=== PATIENT | female | born 1955 | race Caucasian/White ===

== ENCOUNTER 2016-05-29 19:13 | Emergency (ER) | payer OTHER ==
--- NOTE | 2016-05-29 21:23 | ED CLINICAL REPORT ---
Clinical Report - Physicians/Mid Levels [facility] [address] [place] [address] 05/29/2016 19:14 [id number] Time Seen: 19:25; upon arrival, initial patient contact, initial documentation, patient care assumed. Arrived- By private vehicle. Historian- patient. HISTORY OF PRESENT ILLNESS Chief Complaint: Injury to right ankle. The injury happened just prior to arrival. The patient sustained a twisting injury. Occurred at home. Patient is experiencing severe pain. Patient denies injury to the head or neck. No other injury. REVIEW OF SYSTEMS The patient complains of pain on weight bearing. She has had swelling. No tingling, weakness, numbness or skin laceration. All systems otherwise negative, except as recorded above. PAST HISTORY See nurses notes. ( PROBLEMS: Muscle Strain, Lower Extremity. Sciatica. Chronic Back Pain. Arthritis. --19:31 Emely Holguin R.N. ADDITIONAL SURGERIES: Hand surgery. --19:31 Emely Holguin R.N.). SOCIAL HISTORY Heavy tobacco smoker. No alcohol use or drug use. No recent travel. Is a local resident. FAMILY HISTORY No significant family medical history. ADDITIONAL NOTES The nursing notes have been reviewed with agreement regarding the chief complaint, HPI, ROS, PMH and patient medications and allergies. PHYSICAL EXAM Vital Signs: 05/29/2016 19:29 BP: 170/107. HR: 87. RR: 24. O2 saturation: 99%. Temp: 98.5 F. Pain level now: 10/10. Have been reviewed as abnormal and appear to be correct. Hypertensive. Heart rate normal. Respiratory rate normal. Temperature normal. Oxygen saturation normal. Appearance: Alert. Oriented X3. No acute distress. Head: Head atraumatic. Eyes: Pupils equal, round and reactive to light. Eyes normal inspection. Respiratory: No respiratory distress. Skin: Skin intact. Skin warm and dry. Normal skin color. Normal skin turgor. Extremities: Right ankle: moderate tenderness and mild swelling localized to the lateral malleolus. Limited ROM secondary to pain (diminished plantar flexion, dorsiflexion, inversion and eversion). Neurovascular intact distally. No ligamentous laxity present. No joint effusion. No erythema, laceration, abrasion, ecchymosis or puncture wound. No foreign body or deformity. Lower extremity exam otherwise negative. Extremities otherwise negative. Gait: Abnormal gait. Gait not tested due to pain. Neuro, Vascular and Tendons: Vascular status intact. Sensation intact. Motor intact. Tendon function intact. Neuro: Oriented X 3. No motor deficit. No sensory deficit. Note: isolated injury to ankle. LABS, X-RAYS, AND EKG X-Rays: Right ankle. Rt Ankle X-ray: Right ankle fracture. Fracture of the lateral malleolus. (and reviewed by dr schneider IMPRESSION: 1. Distal right fibula oblique fracture Electronically Final signed by:Aki Capone MD 05/29/2016 9:47:15 PM). The X-rays were independently viewed by me. PROGRESS AND PROCEDURES Patient counseled in person regarding the patient's stable condition, test results and diagnosis. 2116. Differential Diagnosis: Other possible considerations: fx, sprain, dislocation. Above considerations are based on history, physical exam and X-Ray data. Differential diagnosis was discussed with patient. Disposition: Discharged home in good and improved condition (21:23). Condition: good and stable. CLINICAL IMPRESSION Closed nondisplaced spiral fracture of the lateral malleolus of the right fibula. No angulated fracture of the fibula. INSTRUCTIONS Apply ice for 20 minutes four times a day for two days until better. Don't apply ice directly to skin. Use crutches until released. Wear fiberglass splint until released. Elevate affected areas above chest level for two days until better. (htn). Warnings: GENERAL WARNINGS: Return or contact your physician immediately if your condition worsens or changes unexpectedly, if not improving as expected, or if other problems arise. Specifically return if problem worsens. Prescription Medications: Zofran 4 mg: Take 1 orally every six hours as needed for nausea/vomiting. Dispense ten (10). No refills. Substitution is permissible. [place] 5 mg / 325 mg tablets: take 1 orally every 6 hours as needed for pain. Dispense thirty (30). No refill. Motrin 800 mg tablets: take 1 tablet orally every 8 hours as needed for pain. Dispense thirty (30). No refills. Substitution is permissible. Understanding of the discharge instructions verbalized by patient. Follow-up with: Fred Hanks MD, Orthopedic Surgeon, , [address] [address] Follow up in about three days even if well. Call for an appointment. Summary of care provided to patient. (Electronically signed by Arlene Hoskins A.R.N.P. 05/29/2016 21:56)
--- NOTE | 2016-05-29 21:23 | ED CLINICAL REPORT ---
Clinical Report - Physicians/Mid Levels [facility] [address] [place] [address] 05/29/2016 19:14 [id number] Time Seen: 19:25; upon arrival, initial patient contact, initial documentation, patient care assumed. Arrived- By private vehicle. Historian- patient. HISTORY OF PRESENT ILLNESS Chief Complaint: Injury to right ankle. The injury happened just prior to arrival. The patient sustained a twisting injury. Occurred at home. Patient is experiencing severe pain. Patient denies injury to the head or neck. No other injury. REVIEW OF SYSTEMS The patient complains of pain on weight bearing. She has had swelling. No tingling, weakness, numbness or skin laceration. All systems otherwise negative, except as recorded above. PAST HISTORY See nurses notes. ( PROBLEMS: Muscle Strain, Lower Extremity. Sciatica. Chronic Back Pain. Arthritis. --19:31 Emely Holguin R.N. ADDITIONAL SURGERIES: Hand surgery. --19:31 Emely Holguin R.N.). SOCIAL HISTORY Heavy tobacco smoker. No alcohol use or drug use. No recent travel. Is a local resident. FAMILY HISTORY No significant family medical history. ADDITIONAL NOTES The nursing notes have been reviewed with agreement regarding the chief complaint, HPI, ROS, PMH and patient medications and allergies. PHYSICAL EXAM Vital Signs: 05/29/2016 19:29 BP: 170/107. HR: 87. RR: 24. O2 saturation: 99%. Temp: 98.5 F. Pain level now: 10/10. Have been reviewed as abnormal and appear to be correct. Hypertensive. Heart rate normal. Respiratory rate normal. Temperature normal. Oxygen saturation normal. Appearance: Alert. Oriented X3. No acute distress. Head: Head atraumatic. Eyes: Pupils equal, round and reactive to light. Eyes normal inspection. Respiratory: No respiratory distress. Skin: Skin intact. Skin warm and dry. Normal skin color. Normal skin turgor. Extremities: Right ankle: moderate tenderness and mild swelling localized to the lateral malleolus. Limited ROM secondary to pain (diminished plantar flexion, dorsiflexion, inversion and eversion). Neurovascular intact distally. No ligamentous laxity present. No joint effusion. No erythema, laceration, abrasion, ecchymosis or puncture wound. No foreign body or deformity. Lower extremity exam otherwise negative. Extremities otherwise negative. Gait: Abnormal gait. Gait not tested due to pain. Neuro, Vascular and Tendons: Vascular status intact. Sensation intact. Motor intact. Tendon function intact. Neuro: Oriented X 3. No motor deficit. No sensory deficit. Note: isolated injury to ankle. LABS, X-RAYS, AND EKG X-Rays: Right ankle. Rt Ankle X-ray: Right ankle fracture. Fracture of the lateral malleolus. (and reviewed by dr schneider IMPRESSION: 1. Distal right fibula oblique fracture Electronically Final signed by:Aki Capone MD 05/29/2016 9:47:15 PM). The X-rays were independently viewed by me. PROGRESS AND PROCEDURES Patient counseled in person regarding the patient's stable condition, test results and diagnosis. 2116. Differential Diagnosis: Other possible considerations: fx, sprain, dislocation. Above considerations are based on history, physical exam and X-Ray data. Differential diagnosis was discussed with patient. Disposition: Discharged home in good and improved condition (21:23). Condition: good and stable. CLINICAL IMPRESSION Closed nondisplaced spiral fracture of the lateral malleolus of the right fibula. No angulated fracture of the fibula. INSTRUCTIONS Apply ice for 20 minutes four times a day for two days until better. Don't apply ice directly to skin. Use crutches until released. Wear fiberglass splint until released. Elevate affected areas above chest level for two days until better. (htn). Warnings: GENERAL WARNINGS: Return or contact your physician immediately if your condition worsens or changes unexpectedly, if not improving as expected, or if other problems arise. Specifically return if problem worsens. Prescription Medications: Zofran 4 mg: Take 1 orally every six hours as needed for nausea/vomiting. Dispense ten (10). No refills. Substitution is permissible. [place] 5 mg / 325 mg tablets: take 1 orally every 6 hours as needed for pain. Dispense thirty (30). No refill. Motrin 800 mg tablets: take 1 tablet orally every 8 hours as needed for pain. Dispense thirty (30). No refills. Substitution is permissible. Understanding of the discharge instructions verbalized by patient. Follow-up with: Fred Hanks MD, Orthopedic Surgeon, , [address] [address] Follow up in about three days even if well. Call for an appointment. Summary of care provided to patient. (Electronically signed by Arlene Hoskins A.R.N.P. 05/29/2016 21:56)
--- NOTE | 2016-05-29 21:23 | ED ORDER SUMMARY ---
..... Patient: MIHAI NATION [facility] VisitID: [id number] [address] [place] [address] 60y, F Registration Date/Time: 05/29/2016 ORDER SHEET Weight: 63.5 kg (stated) Allergies: No Known Drug Allergy GENERAL ORDERS: Ankle 3 or 4V Right Urgent (19:33 05/29/2016 EInderbitzen R.N. verbal order read back to HBivens A.R.N.P.) (19:43 Crystal) Splint (LE) (Right) (Short Leg Posterior) (19:50 05/29/2016 HBivens A.R.N.P.) (Ack 19:56 [employer] ER Organ Grinder) (21:09 [employer] ER Organ Grinder) Crutches (19:50 05/29/2016 HBivens A.R.N.P.) (Ack 19:56 [employer] ER Organ Grinder) (22:02 EInderbitzen R.N.) MEDICATION ORDERS: Toradol IM 60 mg (NOW) (19:49 05/29/2016 HBivens A.R.N.P.) (20:15 EInderbitzen R.N.) Hydrocodone-APAP PO 5/325 mg (NOW, HIGH ALERT MEDICATION) (19:49 05/29/2016 HBivens A.R.N.P.) (20:16 EInderbitzen R.N.) IV FLUIDS: ORDER SHEET NOTES: [Electronically signed by Arlene Hoskins A.R.N.P. (21:56 05/29/2016)] [Electronically signed by Emely Holguin R.N. (22:03 05/29/2016)] [Electronically locked/signed by Emely Holguin R.N. (22:03 05/29/2016)]
--- NOTE | 2016-05-29 21:23 | ED ORDER SUMMARY ---
..... Patient: MIHAI NATION OrderSheet [facility] VisitID: [id number] [address] [place] [address] 60y, F Registration Date/Time: 05/29/2016 ORDER SHEET Weight: 63.5 kg (stated) Allergies: No Known Drug Allergy GENERAL ORDERS: Ankle 3 or 4V Right Urgent (19:33 05/29/2016 EInderbitzen R.N. verbal order read back to HBivens A.R.N.P.) (19:43 Crystal) Splint (LE) (Right) (Short Leg Posterior) (19:50 05/29/2016 HBivens A.R.N.P.) (Ack 19:56 [employer] Radio Operator Ground) (21:09 [employer] ER Radio Operator Ground) Crutches (19:50 05/29/2016 HBivens A.R.N.P.) (Ack 19:56 [employer] Radio Operator Ground) (22:02 EInderbitzen R.N.) MEDICATION ORDERS: Toradol IM 60 mg (NOW) (19:49 05/29/2016 HBivens A.R.N.P.) (20:15 EInderbitzen R.N.) Hydrocodone-APAP PO 5/325 mg (NOW, HIGH ALERT MEDICATION) (19:49 05/29/2016 HBivens A.R.N.P.) (20:16 EInderbitzen R.N.) IV FLUIDS: ORDER SHEET NOTES: [Electronically signed by Arlene Hoskins A.R.N.P. (21:56 05/29/2016)] [Electronically signed by Emely Holguin R.N. (22:03 05/29/2016)] [Electronically locked/signed by Emely Holguin R.N. (22:03 05/29/2016)]
--- NOTE | 2016-05-29 21:23 | ED NURSING NOTES ---
Clinical Report - Nurses [facility] [address] [place] [address] 05/29/2016 19:14 [id number] Triage time 19:29 May 29 2016. Acuity: LEVEL 3. Chief Complaint: INJURY TO RIGHT ANKLE. 19:32 05/29/16. SEPSIS SCREEN: Sepsis Screen: negative. Negative (no infection suspected/documented). SRINI COMA SCORE: Srini Coma Scale: 15- eyes open spontaneously (4); best verbal response- oriented x 4 (5); best motor response- obeys commands (6). --19:32 Emely Holguin R.N. 19:29 05/29/16. BP: 170/107. HR: 87. RR: 24. O2 saturation: 99%. Temp: 98.5 F. Pain level now: 02/01. --19:32 Emely Holguin R.N. Weight: 63.5 kg stated. Height/Length: 56 inches Per Patient. BMI: 31.4. --19:29 Emely Holguin R.N. Medications None. --19:30 Emely Holguin R.N. Allergies No Known Drug Allergy. --19:30 Emely Holguin R.N. Medication/allergy information source: the patient. --19:32 Emely Holguin R.N. History Arrived by private vehicle. Historian: patient. Accompanied by friend. This occurred just prior to arrival. Mechanism of injury: sustained a twisting injury and fell. ( slipped on wet wood surface, landed with ankle underneath her.). Treatment SUPERINTENDENT MENAGERIE: None. PAST MEDICAL HX: The patient is post-menopausal. Denies current . SOCIAL HX: Heavy tobacco smoker- 1 pack per day. No alcohol use or drug use. No infectious disease exposure. ABUSE ASSESSMENT: No report of abuse. SELF HARM ASSESSMENT: A self harm assessment was performed. The patient answered "no" to the question "Have you recently felt down, depressed, or hopeless?", "Have you noticed less interest or pleasure in doing things?", "Do you have thoughts of harming or killing yourself?", "Are you here because you tried to hurt yourself?", "Have you ever tried to hurt yourself before today?", "Have you recently had thoughts about harming or killing others?" and "Do you have any dangerous items in your possession?". FALL RISK ASSESSMENT: Fall risk assessment completed. No fall risk identified. NUTRITIONAL RISK ASSESSMENT: The nutritional risk assessment revealed no deficiencies. FUNCTIONAL ASSESSMENT: Functional assessment: no impairments noted. LEARNING NEEDS ASSESSMENT: The learning needs assessment revealed no barriers. SKIN INTEGRITY ASSESSMENT: Skin integrity risk assessment completed. No skin integrity risk identified. --19:32 Emely Holguin R.N. PROBLEMS: Muscle Strain, Lower Extremity. Sciatica. Chronic Back Pain. Arthritis. --19:31 Emely Holguin R.N. ADDITIONAL SURGERIES: Hand surgery. --19:31 Emely Holguin R.N. Interventions ID band on patient. --19:32 Emely Holguin R.N. PHYSICAL ASSESSMENT 19:30 05/29/16. To room via stretcher. GENERAL / NEURO / PSYCH: Oriented X 4. Appears in pain. EXTREMITIES: Capillary refill is less than 2 seconds in the extremities. Extremity pulses are within normal limits. She was unable to bear weight. Neuro-vascular status intact to the extremity. Right ankle: tenderness, swelling and deformity. Limited ROM secondary to pain (diminished plantar flexion, dorsiflexion, inversion and eversion). SKIN: Skin intact. Skin is warm and dry. --19:43 Emely Holguin R.N. NURSING PROGRESS NOTES 19:29 05/29/16. The initial plan of care for this patient includes an assessment with efforts to address the presence of pain; impairment of the musculoskeletal system. This plan of care was discussed with the patient. Cold pack applied to the right ankle. Right leg and right ankle elevated. Patient gowned. Reassurance given. Patient identifiers checked. Call light placed in reach. Side rails up x 1. Bed placed in lowest position. Brakes of bed on. --19:41 Emely Holguin R.N. 19:35 05/29/16. Patient transported to radiology by stretcher. --19:41 Emely Holguin R.N. 20:10 05/29/2016 Toradol (Ketorolac Tromethamine) IM 60 mg given. Given in the right gluteus paxton. Allergies verified and confirmed 5 rights. --20:16 Emely Holguin R.N. 20:10 05/29/2016 Hydrocodone-APAP (Hydrocodone-Acetaminophen) PO 5/325 mg Tablets 1 tab given. Allergies verified, confirmed 5 rights and sedative warning given to the patient. --20:16 Emely Holguin R.N. Short leg posterior fiberglass lower extremity splint applied to right leg and ankle by tech. Distal pulses intact, sensation intact and motor within normal limits. --21:10 Billy Vences, ER Change Person Patient fit with new crutches ([employer]). Crutch training performed by physical therapist; the patient demonstrated proper use. --21:58 Billy Vences, ER Change Person. DISPOSITION / DISCHARGE 21:20 05/29/2016 Hydrocodone-APAP PO Response: no adverse reaction pain is improving. --22:00 Emely Holguin R.N. 21:20 05/29/2016 Toradol IM Response: no adverse reaction pain is improving. --22:00 Emely Holguin R.N. 21:35 05/29/16. Condition at departure: improved and stable. The goals identified in the patient's plan of care were met. No learning barriers present. Discharge instructions provided and reviewed with the patient. Reviewed medication(s) side effects, precautions, dosing and course information. Prescription(s) given to the patient. Reviewed crutch walking and splint care instructions. Reviewed referral to an orthopedic surgeon for followup. Summary of care provided to patient. Patient verbalized understanding. Written instructions provided in Romanian. The patient was discharged home and accompanied by telecommunication systems designer. She left the Emergency Department in a wheelchair on crutches and via private vehicle. Creative Writing English Professor driving. --22:02 Emely Holguin R.N. 22:01 05/29/16. BP: 150/97. HR: 87. RR: 18. O2 saturation: 95%. Temp: 98.9 F. Pain level now: 09/01. 19:29 05/29/16. BP: 170/107. HR: 87. RR: 24. O2 saturation: 99%. Temp: 98.5 F. Pain level now: 02/01. --22:02 Emely Holguin R.N. Departure time: 21:38 May 29 2016. --22:02 Emely Holguin R.N. Locked/Released at 05/29/2016 22:03 by Emely Holguin R.N.
--- NOTE | 2016-05-29 21:23 | ED NURSING NOTES ---
Clinical Report - Nurses [facility] [address] [place] [address] 05/29/2016 19:14 [id number] TRI[facility] Triage time 19:29 May 29 2016. Acuity: LEVEL 3. Chief Complaint: INJURY TO RIGHT ANKLE. 19:32 05/29/16. SEPSIS SCREEN: Sepsis Screen: negative. Negative (no infection suspected/documented). SRINI COMA SCORE: Srini Coma Scale: 15- eyes open spontaneously (4); best verbal response- oriented x 4 (5); best motor response- obeys commands (6). --19:32 Emely Holguin R.N. 19:29 05/29/16. BP: 170/107. HR: 87. RR: 24. O2 saturation: 99%. Temp: 98.5 F. Pain level now: 02/01. --19:32 Emely Holguin R.N. Weight: 63.5 kg stated. Height/Length: 56 inches Per Patient. BMI: 31.4. --19:29 Emely Holguin R.N. Medications None. --19:30 Emely Holguin R.N. Allergies No Known Drug Allergy. --19:30 Emely Holguin R.N. Medication/allergy information source: the patient. --19:32 Emely Holguin R.N. History Arrived by private vehicle. Historian: patient. Accompanied by friend. This occurred just prior to arrival. Mechanism of injury: sustained a twisting injury and fell. ( slipped on wet wood surface, landed with ankle underneath her.). Treatment SOCIAL MEDIA MARKETING MANAGER: None. PAST MEDICAL HX: The patient is post-menopausal. Denies current . SOCIAL HX: Heavy tobacco smoker- 1 pack per day. No alcohol use or drug use. No infectious disease exposure. ABUSE ASSESSMENT: No report of abuse. SELF HARM ASSESSMENT: A self harm assessment was performed. The patient answered "no" to the question "Have you recently felt down, depressed, or hopeless?", "Have you noticed less interest or pleasure in doing things?", "Do you have thoughts of harming or killing yourself?", "Are you here because you tried to hurt yourself?", "Have you ever tried to hurt yourself before today?", "Have you recently had thoughts about harming or killing others?" and "Do you have any dangerous items in your possession?". FALL RISK ASSESSMENT: Fall risk assessment completed. No fall risk identified. NUTRITIONAL RISK ASSESSMENT: The nutritional risk assessment revealed no deficiencies. FUNCTIONAL ASSESSMENT: Functional assessment: no impairments noted. LEARNING NEEDS ASSESSMENT: The learning needs assessment revealed no barriers. SKIN INTEGRITY ASSESSMENT: Skin integrity risk assessment completed. No skin integrity risk identified. --19:32 Emely Holguin R.N. PROBLEMS: Muscle Strain, Lower Extremity. Sciatica. Chronic Back Pain. Arthritis. --19:31 Emely Hogluin R.N. ADDITIONAL SURGERIES: Hand surgery. --19:31 Emely Holguin R.N. Interventions ID band on patient. --19:32 Emely Holguin R.N. PHYSICAL ASSESSMENT 19:30 05/29/16. To room via stretcher. GENERAL / NEURO / PSYCH: Oriented X 4. Appears in pain. EXTREMITIES: Capillary refill is less than 2 seconds in the extremities. Extremity pulses are within normal limits. She was unable to bear weight. Neuro-vascular status intact to the extremity. Right ankle: tenderness, swelling and deformity. Limited ROM secondary to pain (diminished plantar flexion, dorsiflexion, inversion and eversion). SKIN: Skin intact. Skin is warm and dry. --19:43 Emely Holguin R.N. NURSING PROGRESS NOTES 19:29 05/29/16. The initial plan of care for this patient includes an assessment with efforts to address the presence of pain; impairment of the musculoskeletal system. This plan of care was discussed with the patient. Cold pack applied to the right ankle. Right leg and right ankle elevated. Patient gowned. Reassurance given. Patient identifiers checked. Call light placed in reach. Side rails up x 1. Bed placed in lowest position. Brakes of bed on. --19:41 Emely Holguin R.N. 19:35 05/29/16. Patient transported to radiology by stretcher. --19:41 Emely Holguin R.N. 20:10 05/29/2016 Toradol (Ketorolac Tromethamine) IM 60 mg given. Given in the right gluteus paxton. Allergies verified and confirmed 5 rights. --20:16 Emely Holguin R.N. 20:10 05/29/2016 Hydrocodone-APAP (Hydrocodone-Acetaminophen) PO 5/325 mg Tablets 1 tab given. Allergies verified, confirmed 5 rights and sedative warning given to the patient. --20:16 Emely Holguin R.N. Short leg posterior fiberglass lower extremity splint applied to right leg and ankle by tech. Distal pulses intact, sensation intact and motor within normal limits. --21:10 Billy Vences, ER Camp Director Patient fit with new crutches ([employer]). Crutch training performed by physical therapist; the patient demonstrated proper use. --21:58 Billy Vences, ER Camp Director. DISPOSITION / DISCHARGE 21:20 05/29/2016 Hydrocodone-APAP PO Response: no adverse reaction pain is improving. --22:00 Emely Holguin R.N. 21:20 05/29/2016 Toradol IM Response: no adverse reaction pain is improving. --22:00 Emely Holguin R.N. 21:35 05/29/16. Condition at departure: improved and stable. The goals identified in the patient's plan of care were met. No learning barriers present. Discharge instructions provided and reviewed with the patient. Reviewed medication(s) side effects, precautions, dosing and course information. Prescription(s) given to the patient. Reviewed crutch walking and splint care instructions. Reviewed referral to an orthopedic surgeon for followup. Summary of care provided to patient. Patient verbalized understanding. Written instructions provided in Bengali. The patient was discharged home and accompanied by heart surgeon. She left the Emergency Department in a wheelchair on crutches and via private vehicle. Gore Seamer driving. --22:02 Emely Holguin R.N. 22:01 05/29/16. BP: 150/97. HR: 87. RR: 18. O2 saturation: 95%. Temp: 98.9 F. Pain level now: 09/01. 19:29 05/29/16. BP: 170/107. HR: 87. RR: 24. O2 saturation: 99%. Temp: 98.5 F. Pain level now: 02/01. --22:02 Emely Holguin R.N. Departure time: 21:38 May 29 2016. --22:02 Emely Holguin R.N. Locked/Released at 05/29/2016 22:03 by Emely Holguin R.N.
--- NOTE | 2016-05-29 21:47 | DIAGNOSTIC IMAGING REPORT ---
PROCEDURE: XR ANKLE 3 OR 4 VIEWS - RIGHT INDICATION: TRAUMA/INJURY TECHNIQUE: Four views. COMPARISON: None. FINDINGS: Oblique fracture of the distal fibula with minor displacement. Normal ankle mortise. Mild soft tissue swelling laterally. IMPRESSION: 1. Distal right fibula oblique fracture
--- NOTE | 2016-05-29 22:03 | ED DISCHARGE INSTRUCTIONS ---
Patient: MIHAI NATION General Instructions [facility] VisitID: [id number] [address], [place], [place] [id number] 60y, F Registration Date/Time: 05/29/2016 Closed nondisplaced spiral fracture of the lateral malleolus of the right fibula. No angulated fracture of the fibula. INSTRUCTIONS Apply ice for 20 minutes four times a day for two days until better. Don't apply ice directly to skin. Use crutches until released. Wear fiberglass splint until released. Elevate affected areas above chest level for two days until better. (htn). Warnings: GENERAL WARNINGS: Return or contact your physician immediately if your condition worsens or changes unexpectedly, if not improving as expected, or if other problems arise. Specifically return if problem worsens. Prescription Medications: Zofran 4 mg: Take 1 orally every six hours as needed for nausea/vomiting. Dispense ten (10). No refills. Substitution is permissible. [place] 5 mg / 325 mg tablets: take 1 orally every 6 hours as needed for pain. Dispense thirty (30). No refill. Motrin 800 mg tablets: take 1 tablet orally every 8 hours as needed for pain. Dispense thirty (30). No refills. Substitution is permissible. Understanding of the discharge instructions verbalized by patient. Follow-up with: Fred Hanks MD, Orthopedic Surgeon, , [address] [place] [address] Follow up in about three days even if well. Call for an appointment. Summary of care provided to patient. ADDITIONAL INFORMATION Fracture:Ankle You have a break (fracture) of the ankle. This causes local pain, swelling and sometimes bruising. A fracture is treated with a splint or cast or special boot. It will take about 4-6 weeks for the fracture to heal. Surgery may be needed to fix severe injuries. Home Care: You will be given a splint, cast or boot to prevent movement at the ankle joint. Unless you were told otherwise, use crutches or a walker and do not bear weight on the injured leg until cleared by your doctor to do so. (Crutches and walkers can be rented at many pharmacies and surgical/orthopedic supply stores). Do not put weight on a splint; it will break. Keep your leg elevated to reduce pain and swelling. When sleeping, place a pillow under the injured leg. When sitting, support the injured leg so it is level with your waist. This is very important during the first 48 hours. Apply an ice pack (ice cubes in a plastic bag, wrapped in a towel) over the injured area for 20 minutes every 1-2 hours the first day. You can place the ice pack directly over the splint/cast. Continue with ice packs 3-4 times a day for the next two days, then as needed for the relief of pain and swelling. Keep the cast/splint/boot completely dry at all times. Bathe with your cast/splint/boot out of the water, protected with a large plastic bag, rubber-banded at the top end. If a boot or fiberglass cast/splint gets wet, you can dry it with a hair-dryer. You may use acetaminophen (Tylenol) or ibuprofen (Motrin, Advil) to control pain, unless another pain medicine was prescribed. [ NOTE : If you have chronic liver or kidney disease or ever had a stomach ulcer or GI bleeding, talk with your doctor before using these medicines.] Follow Up with your doctor in one week, or as advised by our staff, to be sure the bone is healing properly. If you were given a splint, it may be changed to a cast at your follow-up visit. [NOTE: A radiologist will review any X-rays that were taken. We will notify you of any new findings that may affect your care.] Get Prompt Medical Attention If Any Of The Following Occur: The plaster cast or splint becomes wet or soft The fiberglass cast or splint remains wet for more than 24 hours Increased tightness or pain under the cast or splint Toes become swollen, cold, blue, numb or tingly Fracture,Ankle, Distal Fibula You have a fracture (broken bone) of the end of the fibula bone. This is one of two bones that support the ankle joint. Home Care: You will be given a splint, cast or special boot to prevent movement at the site of injury. Do not put weight on a splint; it will break. Follow your doctor's advice regarding when to begin bearing weight on a cast or boot. Keep your leg elevated when sitting or lying down. When sleeping, place a pillow under the injured leg. When sitting, support the injured leg so it is level with your waist. This is very important during the first 48 hours. Keep the cast/splint completely dry at all times. When bathing, protect the cast/splint with a large plastic bag, rubber-banded at the top end. If a fiberglass cast or splint gets wet, you can dry it with a hair-dryer. Place an ice pack (ice cubes in a plastic bag, wrapped in a towel) on the splint/cast over the injured area for 20 minutes every 2 hours during the first day.You can place the ice pack directly over the splint/cast. Continue this 3-4 times a day for the next two days. You may use acetaminophen (Tylenol) or ibuprofen (Motrin, Advil) to control pain, unless another pain medicine was prescribed. [NOTE: If you have chronic liver or kidney disease or ever had a stomach ulcer or GI bleeding, talk with your doctor before using these medicines.] Follow Up with your doctor in one week, or as advised by our staff, to be sure the bone is healing properly. If you were given a splint, it may be changed to a cast after the swelling goes down. [NOTE: A radiologist will review any X-rays that were taken. We will notify you of any new findings that may affect your care.] Get Prompt Medical Attention if any of the following occur: The plaster cast or splint becomes wet or soft The fiberglass cast or splint remains wet for more than 24 hours Increased tightness or pain under the cast or splint Toes become swollen, cold, blue, numb or tingly Crutch Walking Crutch Adjustment Make sure the crutches you use are adjusted to fit you. When you stand, there should be room to fit 2-3 fingers between the top of the crutch and your armpit. Your elbow should be slightly bent when holding the hand jewelry making instructor. Crutch Walking: Place the crutches forward 12" in front of and 6" to the side of your feet. Lean your weight forward as you push down on the handgrips. Your weight should be on your hands and yourstrong leg, not your armpits . Let your body swing through, landing on the strong leg. Advance the crutches forward again. The crutch and the injured leg should move together. Going Up Steps: ("Up with the good") With both crutches on the same step as your feet, push down on the handgrips. Balancing with very light pressure on the weak leg, let your hands support your weight as you raise your strong leg onto the next higher step. Transfer all your weight to your strong leg (still bent) as you move the crutches up to the next step alongside the strong leg. With your weight evenly balanced on the two crutches and your strong leg, straighten your strong knee as you raise the weak leg up to the next step. Going Down Steps: ("Down with the bad") With both crutches on the same step as your feet, push down on the handgrips. With your weight evenly balanced on the two crutches and your strong leg, bend your strong knee as you lower the weak leg down to the next step. Let your strong leg support you (still bent) as you move the crutches down alongside the weak leg. Transfer your weight to your hands, balancing with very light pressure on the weak leg as you lower your strong leg alongside your weak leg. Splint Care, Fiberglass The following will help you care for your splint: It will take up totwo hours for your fiber glass splint to fully harden; therefore, do notapply any pressure on it during that time or else it may break. To prevent swelling under the splint, for thefirst 48 hours: If the splint is on yourarm, keep it in a sling or raised to shoulder level when sitting or standing; rest it on your chest or on a pillow at your side when lying down. If the splint is on yourfoot, keep it propped up above the level of your waist when sitting or lying. Avoid crutch walking as much as possible during this time. Keep the splint/cast dry at all times. Bathe with your splint/cast well out of the water, protected with a large plastic bag, rubber-banded at the top end. If a fiberglass cast or splint gets wet, you can dry it with a hair-dryer. Follow-up care Follow up with your doctor or this facility as advised. When to seek medical care Get prompt medical attention if any of the following occur: Bad odor from the splint or wound-fluid stains the splint The splint cracks or remains wet over 24 hours Increasing tightness or pressure under the splint Fingers or toes become swollen, cold, blue, numb or tingly Increased pain under the splint Ondansetron Oral disintegrating tablet What is this medicine? ONDANSETRON (on NAN se abdon) is used to treat nausea and vomiting caused by chemotherapy. It is also used to prevent or treat nausea and vomiting after surgery. How should I use this medicine? These tablets are made to dissolve in the mouth. Do not try to push the tablet through the foil backing. With dry hands, peel away the foil backing and gently remove the tablet. Place the tablet in the mouth and allow it to dissolve, then swallow. While you may take these tablets with water, it is not necessary to do so. Talk to your battery tester regarding the use of this medicine in children. Special care may be needed. What side effects may I notice from receiving this medicine? Side effects that you should report to your doctor or health primary care sales representative as soon as possible: allergic reactions like skin rash, itching or hives, swelling of the face, lips, or tongue breathing problems dizziness fast or irregular heartbeat feeling faint or lightheaded, falls fever and chills swelling of the hands and feet tightness in the chest Side effects that usually do not require medical attention (report to your doctor or health primary care sales representative if they continue or are bothersome): constipation or diarrhea headache What may interact with this medicine? Do not take this medicine with any of the following medications: -apomorphine -cisapride -dofetilide -dronedarone -pimozide -thioridazine -ziprasidone This medicine may also interact with the following medications: -carbamazepine -phenytoin -rifampicin -tramadol -other medicines that prolong the QT interval (cause an abnormal heart rhythm) What if I miss a dose? If you miss a dose, take it as soon as you can. If it is almost time for your next dose, take only that dose. Do not take double or extra doses. Where should I keep my medicine? Keep out of the reach of children. Store between 2 and 30 degrees C (36 and 86 degrees F). Throw away any unused medicine after the expiration date. What should I tell my health care provider before I take this medicine? They need to know if you have any of these conditions: heart disease history of irregular heartbeat liver disease low levels of magnesium or potassium in the blood an unusual or allergic reaction to ondansetron, granisetron, other medicines, foods, dyes, or preservatives or trying to get breast-feeding What should I watch for while using this medicine? Check with your doctor or health primary care sales representative as soon as you can if you have any sign of an allergic reaction. Hydrocodone Bitartrate, Acetaminophen Oral tablet What is this medicine? ACETAMINOPHEN; HYDROCODONE (a set a SON chitra fen; dalia droe KOE done) is a pain reliever. It is used to treat mild to moderate pain. How should I use this medicine? Take this medicine by mouth. Swallow it with a full glass of water. Follow the directions on the prescription label. If the medicine upsets your stomach, take the medicine with food or milk. Do not take more than you are told to take. Talk to your battery tester regarding the use of this medicine in children. This medicine is not approved for use in children. What side effects may I notice from receiving this medicine? Side effects that you should report to your doctor or health primary care sales representative as soon as possible: allergic reactions like skin rash, itching or hives, swelling of the face, lips, or tongue breathing problems confusion feeling faint or lightheaded, falls stomach pain yellowing of the eyes or skin Side effects that usually do not require medical attention (report to your doctor or health primary care sales representative if they continue or are bothersome): nausea, vomiting stomach upset What may interact with this medicine? alcohol antihistamines isoniazid medicines for depression, anxiety, or psychotic disturbances medicines for sleep muscle relaxants naltrexone narcotic medicines (opiates) for pain phenobarbital ritonavir tramadol What if I miss a dose? If you miss a dose, take it as soon as you can. If it is almost time for your next dose, take only that dose. Do not take double or extra doses. Where should I keep my medicine? Keep out of the reach of children. This medicine can be abused. Keep your medicine in a safe place to protect it from theft. Do not share this medicine with anyone. Selling or giving away this medicine is dangerous and against the law. Store at room temperature between 15 and 30 degrees C (59 and 86 degrees F). Protect from light. Keep container tightly closed. Throw away any unused medicine after the expiration date. Discard unused medicine and used packaging carefully. Pets and children can be harmed if they find used or lost packages. What should I tell my health care provider before I take this medicine? They need to know if you have any of these conditions: brain tumor Crohn's disease, inflammatory bowel disease, or ulcerative colitis drink more than 3 alcohol-containing drinks per day drug abuse or addiction head injury heart or circulation problems kidney disease or problems going to the bathroom liver disease lung disease, asthma, or breathing problems an unusual or allergic reaction to acetaminophen, hydrocodone, other opioid analgesics, other medicines, foods, dyes, or preservatives or trying to get breast-feeding What should I watch for while using this medicine? Tell your doctor or health primary care sales representative if your pain does not go away, if it gets worse, or if you have new or a different type of pain. You may develop tolerance to the medicine. Tolerance means that you will need a higher dose of the medicine for pain relief. Tolerance is normal and is expected if you take the medicine for a long time. Do not suddenly stop taking your medicine because you may develop a severe reaction. Your body becomes used to the medicine. This does NOT mean you are addicted. Addiction is a behavior related to getting and using a drug for a non-medical reason. If you have pain, you have a medical reason to take pain medicine. Your doctor will tell you how much medicine to take. If your doctor wants you to stop the medicine, the dose will be slowly lowered over time to avoid any side effects. You may get drowsy or dizzy when you first start taking the medicine or change doses. Do not drive, use machinery, or do anything that may be dangerous until you know how the medicine affects you. Stand or sit up slowly. There are different types of narcotic medicines (opiates) for pain. If you take more than one type at the same time, you may have more side effects. Give your health care provider a list of all medicines you use. Your doctor will tell you how much medicine to take. Do not take more medicine than directed. Call emergency for help if you have problems breathing. The medicine will cause constipation. Try to have a bowel movement at least every 2 to 3 days. If you do not have a bowel movement for 3 days, call your doctor or health primary care sales representative. Too much acetaminophen can be very dangerous. Do not take Tylenol (acetaminophen) or medicines that contain acetaminophen with this medicine. Many non-prescription medicines contain acetaminophen. Always read the labels carefully. Ibuprofen Oral tablet What is this medicine? IBUPROFEN (eye BYOO proe fen) is a non-steroidal anti-inflammatory drug (NSAID). It is used for dental pain, fever, headaches or migraines, osteoarthritis, rheumatoid arthritis, or painful monthly periods. It can also relieve minor aches and pains caused by a cold, flu, or sore throat. How should I use this medicine? Take this medicine by mouth with a glass of water. Follow the directions on the prescription label. Take this medicine with food if your stomach gets upset. Try to not lie down for at least 10 minutes after you take the medicine. Take your medicine at regular intervals. Do not take your medicine more often than directed. A special MedGuide will be given to you by the pharmacist with each prescription and refill. Be sure to read this information carefully each time. Talk to your battery tester regarding the use of this medicine in children. Special care may be needed. What side effects may I notice from receiving this medicine? Side effects that you should report to your doctor or health primary care sales representative as soon as possible: allergic reactions like skin rash, itching or hives, swelling of the face, lips, or tongue black or bloody stools, blood in the urine or in vomit breathing problems changes in vision chest pain general ill feeling or flu-like symptoms nausea or vomiting redness, blistering, peeling or loosening of the skin, including inside the mouth slurred speech or weakness on one side of the body stomach pain unexplained weight gain or swelling unusually weak or tired yellowing of eyes or skin Side effects that usually do not require medical attention (report to your doctor or health primary care sales representative if they continue or are bothersome): constipation or diarrhea dizziness gas or heartburn stomach upset What may interact with this medicine? Do not take this medicine with any of the following medications: cidofovir ketorolac methotrexate pemetrexed This medicine may also interact with the following medications: alcohol aspirin diuretics lithium other drugs for inflammation like prednisone warfarin What if I miss a dose? If you miss a dose, take it as soon as you can. If it is almost time for your next dose, take only that dose. Do not take double or extra doses. Where should I keep my medicine? Keep out of the reach of children. Store at room temperature between 15 and 30 degrees C (59 and 86 degrees F). Keep container tightly closed. Throw away any unused medicine after the expiration date. What should I tell my health care provider before I take this medicine? They need to know if you have any of these conditions: asthma cigarette smoker drink more than 3 alcohol containing drinks a day heart disease or circulation problems such as heart failure or leg edema (fluid retention) high blood pressure kidney disease liver disease stomach bleeding or ulcers an unusual or allergic reaction to ibuprofen, aspirin, other NSAIDS, other medicines, foods, dyes, or preservatives or trying to get breast-feeding What should I watch for while using this medicine? Tell your doctor or healthcare professional if your symptoms do not start to get better or if they get worse. This medicine does not prevent heart attack or stroke. In fact, this medicine may increase the chance of a heart attack or stroke. The chance may increase with longer use of this medicine and in people who have heart disease. If you take aspirin to prevent heart attack or stroke, talk with your doctor or health primary care sales representative. Do not take other medicines that contain aspirin, ibuprofen, or naproxen with this medicine. Side effects such as stomach upset, nausea, or ulcers may be more likely to occur. Many medicines available without a prescription should not be taken with this medicine. This medicine can cause ulcers and bleeding in the stomach and intestines at any time during treatment. Ulcers and bleeding can happen without warning symptoms and can cause . To reduce your risk, do not smoke cigarettes or drink alcohol while you are taking this medicine. You may get drowsy or dizzy. Do not drive, use machinery, or do anything that needs mental alertness until you know how this medicine affects you. Do not stand or sit up quickly, especially if you are an older patient. This reduces the risk of dizzy or fainting spells. This medicine can cause you to bleed more easily. Try to avoid damage to your teeth and gums when you brush or floss your teeth. You have been given the following additional information: Fracture, Ankle (General) Ankle Fracture (Distal Fibula), Closed Crutch Walking Splint Care, Fiberglass Ondansetron Oral disintegrating tablet Hydrocodone Bitartrate, Acetaminophen Oral tablet Ibuprofen Oral tablet (Electronically signed by Arlene Hoskins A.R.N.P. 05/29/2016 21:56)
--- NOTE | 2016-05-29 22:03 | ED MAR SUMMARY ---
..... Medication Administration Record [facility] [address] [place] [address] Patient: MIHAI NATION Visit ID: [id number] 60y, F Weight: 63.5 kg Height/Length: 56 in BMI: 31.4 ALLERGIES: No Known Drug Allergy Given 20:05/29/2016 Emely Holguin RPhilNPhil Medication Administered: TORADOL [IM] (KETOROLAC TROMETHAMINE), Dose: 60 mg IM. Medication Ordered: Toradol IM 60 mg (NOW). Given 20:10 05/29/2016 Emely Holguin, RPhilNPhil Medication Administered: HYDROCODONE-APAP [PO] (HYDROCODONE-ACETAMINOPHEN), Dose: 1 tab 5/325 mg Tablets PO. Medication Ordered: Hydrocodone-APAP PO 5/325 mg (NOW, HIGH ALERT MEDICATION).
--- NOTE | 2016-05-29 22:03 | ED MED RECONCILIATION SUMMARY ---
Patient: MIHAI NATION Medication Reconciliation Report [facility] VisitID: [id number] [address] [place] [address] 60y, F Registration Date/Time: 05/29/2016 Weight: 63.5 kg Height/Length: 56 in. BMI: 31.4 ALLERGIES: No Known Drug Allergy The patient's Home Medications are listed below: NONE. The source(s) of the original Home Medication information: patient The following Medications were given to the patient in the Emergency Department: Toradol [IM] IM 60 mg, administered: 05/29/2016 8:10:00 PM Hydrocodone-APAP [PO] PO 1 tab, administered: 05/29/2016 8:10:00 PM The following Medications were prescribed to the patient: Zofran 4 mg: Take 1 orally every six hours as needed for nausea/vomiting. Dispense ten (10). No refills. Substitution is permissible. -- Arlene Hoskins, A.R.N.P. [place] 5 mg / 325 mg tablets: take 1 orally every 6 hours as needed for pain. Dispense thirty (30). No refill. -- Arlene Hoskins, A.R.N.P. Motrin 800 mg tablets: take 1 tablet orally every 8 hours as needed for pain. Dispense thirty (30). No refills. Substitution is permissible. -- Arlene Hoskins A.R.N.P.
--- NOTE | 2016-05-29 22:03 | ED MAR SUMMARY ---
..... Medication Administration Record [facility] [address] [place] [address] Patient: MIHAI NATION Visit ID: [id number] 60y, F Weight: 63.5 kg Height/Length: 56 in BMI: 31.4 ALLERGIES: No Known Drug Allergy Given 20:05/29/2016 Emely Holguin RPhilNPhil Medication Administered: TORADOL [IM] (KETOROLAC TROMETHAMINE), Dose: 60 mg IM. Medication Ordered: Toradol IM 60 mg (NOW). Given 20:10 05/29/2016 Emely Holguin, RPhilNPhil Medication Administered: HYDROCODONE-APAP [PO] (HYDROCODONE-ACETAMINOPHEN), Dose: 1 tab 5/325 mg Tablets PO. Medication Ordered: Hydrocodone-APAP PO 5/325 mg (NOW, HIGH ALERT MEDICATION).
--- NOTE | 2016-05-29 22:03 | ED MED RECONCILIATION SUMMARY ---
Patient: MIHAI NATION Medication Reconciliation Report [facility] VisitID: [id number] [address] [place] [address] 60y, F Registration Date/Time: 05/29/2016 Weight: 63.5 kg Height/Length: 56 in. BMI: 31.4 ALLERGIES: No Known Drug Allergy The patient's Home Medications are listed below: NONE. The source(s) of the original Home Medication information: patient The following Medications were given to the patient in the Emergency Department: Toradol [IM] IM 60 mg, administered: 05/29/2016 8:10:00 PM Hydrocodone-APAP [PO] PO 1 tab, administered: 05/29/2016 8:10:00 PM The following Medications were prescribed to the patient: Zofran 4 mg: Take 1 orally every six hours as needed for nausea/vomiting. Dispense ten (10). No refills. Substitution is permissible. -- Arlene Hoskins, A.R.N.P. [place] 5 mg / 325 mg tablets: take 1 orally every 6 hours as needed for pain. Dispense thirty (30). No refill. -- Arlene Hoskins, A.R.N.P. Motrin 800 mg tablets: take 1 tablet orally every 8 hours as needed for pain. Dispense thirty (30). No refills. Substitution is permissible. -- Arlene Hoskins A.R.N.P.
== END 2016-05-29 21:35 | disposition home or self-care (01) ==
LOC: ED SRH 19:13
DX: S82.64XA Nondisplaced fracture of lateral malleolus of right fibula, initial encounter for closed fracture (principal); W01.0XXA Fall on same level from slipping, tripping and stumbling without subsequent striking against object, initial encounter; Y93.9 Activity, unspecified; Y92.009 Unspecified place in unspecified non-institutional (private) residence as the place of occurrence of the external cause; Y99.9 Unspecified external cause status; F17.210 Nicotine dependence, cigarettes, uncomplicated